=== PATIENT | female | born 1970 | race Caucasian/White ===

== ENCOUNTER 2016-07-18 10:59 | Observation (INO) | payer OTHER ==
--- NOTE | ~2016-07-18 | CT71 ---
[facility] A Service of [facility] RADIOLOGY TEXT RESULTS PATIENT: JENNYFER CHURCHILL LOCATION: [facility] [id number] : [birth year] UNIT #: [id number] AGE: [address]: Basia Cooley MD SEX: F ORDER DR: [id number] [place] [id number] [facility]. [place], [place] [address] [id number] MR#: [id number] Acc #: [id number] NAME: JENNYFER CHURCHILL : 1970 SEX: F STUDY DATE/TIME: 07/18/2016 12:07 UNIT: [facility] ROOM: STUDY DESCRIPTION: CT Head Wo Contrast Attending Physician: Edward Babb M.D. Ordering Physician: Edward Babb M.D. Primary Care Physician: Wei Oviedo M.D. MEDICAL IMAGING REPORT This report is preliminary unless electronic signature is present EXAM CT head INDICATION Right arm numbness. Slurred speech. TECHNIQUE CT of the head without contrast. This CT exam was performed with one or more of the following radiation dose reduction techniques: automatic exposure control, adjustment of mA and/or kV according to patient size, and iterative reconstruction. COMPARISON None available. FINDINGS Axial noncontrast images were obtained from the skull base to the vertex. Ventricular size and configuration are normal. There is no evidence of acute infarct or hemorrhage. There are no extra-axial fluid collections. No mass lesion or mass effect is seen. There are no skull fractures. IMPRESSION Normal noncontrast head CT. Dictated by... Phil Smith M.D. THIS IS AN ELECTRONICALLY VERIFIED REPORT Phil Smith M.D. at 07/18/2016 2:46 PM RPC/el TD: 07/18/2016 14:32 [facility] A Service of [facility] RADIOLOGY TEXT RESULTS PATIENT: JENNYFER CHURCHILL LOCATION: [facility] [id number] : [birth year] UNIT #: [id number] AGE: [address]: Basia Cooley MD SEX: F ORDER DR: JOB #: [id number] MEDICAL IMAGING REPORT Page 1 of 1 COPY
--- NOTE | ~2016-07-18 | CO ---
Unit #: [id number] #: [id number] Patient: JENNYFER CHURCHILL [id number] [facility] [address] [facility]. [place], [place] [address] [id number] I MR#: [id number] NAME: JENNYFER CHURCHILL ROOM: 327 Age: 46 Sex: F Admission Date: 07/18/2016 : 1970 Attending Physician: Seth Garner M.D. Primary Care Physician: Wei Oviedo M.D. Requesting Physician: Basia Cooley M.D. Consultation Date: 07/18/2016 CONSULTATION REPORT REASON FOR CONSULTATION Right upper extremity weakness and numbness. PATIENT IDENTIFICATION This is a 46-year-old right-handed female evaluated originally in the emergency room, T2 and now in 327 at [facility]. SOURCE OF INFORMATION Obtained from the patient as well as the medical record. HISTORY OF PRESENT ILLNESS This is a 46-year-old right-handed female with a past medical history of coronary artery disease with a history of stent approximately 2 years ago, hypertension, hyperlipidemia, diabetes mellitus type 2 and tobacco use. She presented to [facility] with complaints of slurred speech with struggling to get her words out and also right arm and hand numbness. She said that she woke up this morning after going to bed in her usual state of sahil and noted she was having some weakness and numbness in her upper extremity. She is right handed. She decided to get ready and go to work and she noticed at work she was struggling with her words at times and her coworkers noted that her speech was slurred. Her symptoms essentially improved and mostly resolved with the exception of some continued right hand numbness. She states that she felt as though her speech had resolved and initially seems at first glance to not have any major difficulties with speech, but after a long thorough conversation she does have an occasional difficulty in finding the right word to say. She was admitted for further workup and evaluation. CT was negative for any acute findings. Neurology was asked to evaluate for the above symptoms and concern for stroke versus TIA. She was given a gram of Rocephin for abnormal urinalysis and concern for urinary tract infection. The patient is asymptomatic at this time. She was loaded with Plavix 600 mg in the emergency room and was also given aspirin. MRI of the brain was done with those results just now available and I did discuss those findings with her. She does have an area of abnormal restricted diffusion, consistent with recent likely thromboembolic insult to the posterior left MCA territory with multiple small areas of restricted diffusion involving the posterior left frontal lobe, anterior left parietal lobe, cortex, underlying subcortical white matter with largest about 1.4 cm in dimension. At this time there is no appreciable mass effect and no evidence for hemorrhagic transformation. Findings most consistent with recent thromboembolic insult with some peripheral distribution of thromboemboli. Please see report. She had a CT angiogram done as well in the emergency room. CT angiogram of the head and neck Unit #: [id number] #: [id number] Patient: JENNYFER CHURCHILL shows what appears to be 40% proximal ICA stenosis by NASCET criteria bilaterally. No hemodynamically or flow-limiting stenosis intracranially. No evidence of carotid or vertebral dissection. Full dictated report is pending. Imaging has been reviewed. She denies any exacerbating or alleviating factors or any other associated symptoms, such as double vision, blurred vision or loss of vision, headache, neck pain, fall, recent illness or injury. She does complain that she had a mild headache this morning, which has resolved. She states that she has occasional headaches, but denied that it is the worst pain of her life and reports that her headache has resolved. She denies any loss of consciousness or loss of awareness, shortness of breath, chest pain, bruising or bleeding abnormalities or symptoms otherwise. PAST MEDICAL HISTORY 1. Tobacco abuse. 2. Coronary artery disease, status post stent placement two years ago. She is followed by Dr. Nava. 3. Hypertension. 4. Hyperlipidemia. 5. Diabetes mellitus type 2. 6. section. 7. Hernia repair. 8. Cardiac stent. 9. Cardiac catheterization. SOCIAL HISTORY The patient lives with her children. She smokes one pack per day of tobacco. She denies alcohol use or illicit drug use. 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 FAMILY HISTORY Positive for hypertension and coronary artery disease in her father, though she is unsure at what age. She states that she was not close with her father. She says her mother had a history of diabetes, hypertension and Parkinson disease. ALLERGIES No known drug allergies. HOME MEDICATIONS 1. Lisinopril 20 mg p.o. daily. 2. Carvedilol 25 mg p.o. b.i.d. 3. Glipizide 10 mg p.o. daily. 4. Metformin 500 mg p.o. b.i.d. 5. Lasix 20 mg p.o. daily. 6. Lantus insulin 24 units subcutaneous at bedtime. 7. Fenofibrate 160 mg p.o. daily. 8. Potassium chloride 20 mEq p.o. daily. 9. Not listed on the medication reconciliation, she does take aspirin 81 mg p.o. daily and she did confirm this. REVIEW OF SYSTEMS Fourteen point review of systems done and pertinent positives are as listed above, otherwise negative. PHYSICAL EXAMINATION VITALS: Temperature 97.9, she has been afebrile. Pulse 84, respiratory rate 16, blood pressure 127/76. Blood pressure in the emergency room on Unit #: [id number] #: [id number] Patient: JENNYFER CHURCHILL arrival was 123/76. Oxygen saturation 96%. Height 5'3" and weight 190 pounds. BMI is 33. NEUROLOGIC EXAMINATION The patient is awake, alert and oriented to person, place and time, as well as events. She has no right/left confusion. No finger agnosia. Initially she did not appear to have any significant difficulty as far as aphasia, but upon longer conversation with the patient she has some mild occasional word-finding difficulty, but it is minimal. No dysarthria. No apraxia. CRANIAL NERVES: She demonstrates full field of vision. Eyes are conjugate without ptosis or nystagmus. Extraocular movements are intact. Sensation of the face and scalp intact. Strength of muscles of facial expression intact. Hearing is intact to finger rub and conversation. Tongue is midline. Uvula is midline. Palatal elevation is normal. Head turning and shoulder shrug are unremarkable. Neck is supple. MOTOR: She demonstrates normal bulk and tone. Strength is equal, 5/5 in all extremities. There is no focal weakness appreciated. GAIT: Normal. Romberg deferred. REFLEXES: One out of four toes are equivocal. COORDINATION: No pass pointing seen. DIAGNOSTIC STUDIES IMAGING: MRI of the brain, please see above. CT angiogram, please see above. CT of the head without contrast on 07/18/2016 normal. LABORATORY: CMP unremarkable other than a glucose of 136, cholesterol 144, triglycerides 216, LDL 73, HDL 28, troponin less than 0.05. CBC unremarkable other than hematocrit of 45.4. PT 1.2, INR 1.0, PTT 23.1. Urinalysis shows 2+ leukocytes, greater than 1000 glucose, positive for nitrates, 25-50 white cells, 3+ bacteria, many squamous cells. Culture pending. Initial troponin less than 0.05. Initial glucose 189. ASSESSMENT 1. Acute left middle cerebral artery territory likely thromboembolic ischemic stroke with right hand paresthesia and mild aphasia. 2. Coronary artery disease with a history of stent two years ago. Followed by Dr. Nava. 3. Hypertension. 4. Hyperlipidemia. Will initiate statin therapy with Lipitor 40 mg p.o. at nighttime. LDL is greater than 70. She denies any allergies or intolerance to statin. 5. Diabetes mellitus type 2. Check hemoglobin A1c. 6. Tobacco abuse. I discussed with the patient at length regarding the need for cessation as far as stroke and heart risk reduction. PLAN Please see orders. The patient woke up with symptoms. Thus, she was not a candidate for acute intervention with Alteplase. She received a loading dose of Plavix in the emergency room. Will continue aspirin and Plavix for medical management as well as intensive statin therapy. Will ask physical therapy, occupational therapy and speech therapy to see. She may only need outpatient therapy, but needs evaluation. Stroke education has been discussed with the patient at length and I will follow up and discuss with her again in the morning. She is being admitted to the stroke floor Unit #: [id number] #: [id number] Patient: JENNYFER CHURCHILL for further evaluation. The case was discussed with Dr. Easley and he agrees with the above. We will follow along with you. Thank you very much for allowing us to assist in the care of this patient. Dictated by... Marisa Fernanod A.P.R.N. for Wendy Mathew/bertha TD: 07/19/2016 08:28 JOB #: [id number] CONSULTATION REPORT Page 1 of 1 X Marisa Fernando APRN CONSULTATION REPORT
--- NOTE | ~2016-07-18 | HP ---
Unit #: [id number] #: [id number] Patient: JENNYFER CHURCHILL [id number] [facility] [address] [facility]. [place], [place] [address] [id number] I MR#: [id number] NAME: JENNYFER CHURCHILL ROOM: 19174 Age: 46 Sex: F Admission Date: 07/18/2016 : 1970 Attending Physician: Basia Cooley M.D. Primary Care Physician: Wei Oviedo M.D. HISTORY AND PHYSICAL CHIEF COMPLAINT Right arm numbness. HISTORY OF PRESENT ILLNESS The patient is a 46-year-old female with a past medical history of hypertension, hyperlipidemia, diabetes, and coronary artery disease, who presented to the emergency department for evaluation of the above. The patient states that she was in her usual state of health until the morning of admission around 6. She states that she noticed her right upper extremity to be numb and weak. She is right-handed. She also thought that her speech was somewhat slurred. She presented to the emergency department for further evaluation. She denies ever having a similar episode. In the emergency department, initial head CT is negative. Laboratory is notable for findings concerning for urinary tract infection. She was given a gram of Rocephin. Additionally, the emergency room physician spoke with Neurology who recommended 600 mg of Plavix which was given p.o. She is being admitted to [facility] for evaluation and further treatment. PAST MEDICAL HISTORY 1. Admission to [facility] about two years ago. She had a cardiac stent placed during that admission (no records). 2. Coronary artery disease, status post stent placement, followed by Dr. Nava. 3. Hypertension. 4. Hyperlipidemia. 5. Diabetes. PAST SURGICAL HISTORY 1. section. 2. Hernia repair. 3. Cardiac stent. 4. Cardiac catheterization. SOCIAL HISTORY The patient lives with her children. She smokes a pack of cigarettes daily. She denies alcohol or illicit drug use. 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 FAMILY HISTORY Notable for her dad having hypertension and possibly heart issues. Her Unit #: [id number] #: [id number] Patient: JENNYFER CHURCHILL mother had diabetes, hypertension, and Parkinson disease. ALLERGIES No known allergies. HOME MEDICATIONS 1. Lisinopril 20 mg daily. 2. Carvedilol 25 mg twice daily. 3. Glipizide 10 mg daily. 4. Metformin 500 mg twice daily. 5. Lasix 20 mg daily. 6. Lantus 24 units at bedtime. 7. Fenofibrate 160 mg daily. 8. Potassium 20 mEq daily. REVIEW OF SYSTEMS A complete review of systems is negative except as indicated in the History of Present Illness. The patient states that her blood sugars are typically in the 160 to 170 range. PHYSICAL EXAMINATION VITAL SIGNS: Temperature is 98.7, pulse 94, respirations 24, blood pressure 123/76, and oxygen saturation is 98% on room air. GENERAL: Patient is a very pleasant female who is awake, alert, and in no acute distress. HEENT: Head is atraumatic. Mucous membranes are moist. NECK: Supple. Trachea is midline. CARDIOVASCULAR: Regular rate and rhythm. LUNGS: Clear to auscultation bilaterally with no increased work of breathing. ABDOMEN: Soft and nontender with bowel sounds present in all four quadrants. EXTREMITIES: Patient does have edema of the feet. NEUROLOGIC: Patient is awake and alert. She follows commands. Sensation is subjectively decreased involving the right upper extremity. Electrician Technician strength is symmetric. There is no appreciable pronator drift. PSYCHIATRIC: Mood and affect are normal. Patient is cooperative. SKIN: Skin of examined areas is warm and dry. DIAGNOSTIC STUDIES LABORATORY: Complete blood count is essentially normal. Troponin is less than 0.05. Urinalysis notable for 2+ leukocyte esterase, positive nitrite, greater than 1000 glucose, 25-50 white blood cells, 3+ bacteria, and many squamous cells. INR is 1. Urine test is negative. IMAGING: CT of the head shows nothing acute. CARDIOLOGY: EKG shows normal sinus rhythm with a rate of 98 beats per minute. ASSESSMENT The patient is a 46-year-old female with: 1. Right upper extremity numbness/weakness. 2. Abnormal speech. 3. Urinary tract infection. There are no urine cultures in [facility] for review. 4. Hypertension. 5. Hyperlipidemia. Unit #: [id number] #: [id number] Patient: JENNYFER CHURCHILL 6. Diabetes. 7. Coronary artery disease, status post cardiac stent placement. 8. Tobacco abuse. PLAN 1. Admit for observation to intermediate level. 2. Healthy heart, consistent carbohydrate diet if passes bedside swallow. 3. Neuro check q.4 hours. 4. CTA of the head and neck and MRI of the brain without contrast as per stroke protocol. 5. Stroke protocol per Neurology. 6. Consult Dr. Jacome regarding possible TIA. 7. Serial cardiac enzymes. 8. Urine culture and sensitivity on urine in the lab. 9. Rocephin IV pending results of urine culture. 10. Hemoglobin A1c. 11. Low-dose sliding scale insulin with Accu-Cheks. 12. Repeat labs in the morning. 13. SCDs for DVT prophylaxis. 14. Additional workup and consultants based on above. 1. Dictated by Wendy El/james TD: 07/18/2016 16:22 JOB #: [id number] HISTORY AND PHYSICAL Page 1 of 1 X Basia Cooley MD X HISTORY AND PHYSICAL
--- NOTE | ~2016-07-18 | DS ---
Unit #: [id number] #: [id number] Patient: JENNYFER CHURCHILL [id number] [address] [address] [id number] I MR#: [id number] NAME: JENNYFER CHURCHILL ROOM: 327 Age: Sex: F Admission Date: 07/18/2016 : 1970 Discharge Date: 07/20/2016 Attending Physician: Seth Garner M.D. Primary Care Physician: Wei Oviedo M.D. DISCHARGE SUMMARY SEE ADDENDUM DISCHARGE DIAGNOSES 1. Thromboembolic insult to the posterior left MCA territory with a no residual duct at this time. 2. Gram-negative karel urinary tract infection with discharge on Omnicef and now will followup on this urine culture and sensitivity. 3. History of uncontrolled type 2 diabetes, A1c was 11.9. 4. History of dyslipidemia. 5. Hypertriglyceridemia. 6. Essential hypertension. 7. Coronary artery disease. 8. Tobacco usage. CONSULTANTS Dr. Easley of neurology. PROCEDURES None. IMAGING Head CT 07/18/2016 impression: Normal noncontrast head CT. CT angio head and neck, impression: 1. No evidence of carotid or vertebral dissection in the neck. 2. Plaque in the bulb with about 40% stenosis in each proximal ICA by NASCET criteria. No hemodynamically significant stenosis was seen intracranially. There is no flow limiting stenosis by NASCET criteria. There is no aneurysm or vessel cutoff. MRI of the brain without contrast, impression: Recent likely thromboembolic insult to the posterior left MCA territory with multiple small areas of restricted diffusion involving the posterior left frontal lobe inferior and left parietal lobe cortex and underlying cortical white matter, largest about 1.4 cm dimension. At this time there is no appreciable mass effect and there is no evidence of hemorrhagic transformation. Findings are most consistent with a recent thromboembolic insults with some peripheral distribution of the thromboemboli. LABS ON DAY OF DISCHARGE BMP - glucose 270, BUN 13, creatinine 0.7, sodium 137, potassium 4.0, chloride 104, CO2 26, calcium 8.8, total protein 6.3, albumin 3.4, total bilirubin 0.2, AST of 15, ALT 12. Hemoglobin A1c is 11.9. Lipid panel - Unit #: [id number] #: [id number] Patient: JENNYFER CHURCHILL total cholesterol 144, triglycerides 316, LDL 73, HDL 28. Please note that TSH was 0.67, CBC with WBC of 8.5, rbc's 4.38, hemoglobin 13.7, hematocrit 31.2, MCV 94.1, MCH 31.2, MCHC 33.2, RDW 15.3, platelets 261, MPV 7.8. Currently urine culture shows Gram-negative karel, sensitivity is still pending. HOSPITAL COURSE Patient is a pleasant 46-year-old female with a past medical history of type 2 diabetes uncontrolled, essential hypertension, dyslipidemia, coronary artery disease, and ongoing tobacco usage who presents to the emergency department due to symptoms of right arm numbness. Patient noted symptoms around 6:00 on the day of admission. She had also noticed some symptoms of right upper extremity numbness and weakness. She also thought that her speech was somewhat slurred. She was seen in the emergency department for evaluation. She denied similar symptoms in the past in emergency department. CT of the head was negative. Laboratory was significant for a UTI. She was given 1 g of Rocephin. Urology was consulted and have recommended 600 mg of Plavix, which was given p.o. She was admitted for further evaluation. Upon further exam, an MRI is positive for a thromboembolic insult to the left MCA territory. Under Dr. Easley's recommendation, who felt that the source was thromboembolic, therefore, a DODIE was not felt to be needed at this time. Patient had undergone a 2D echo to assess for a bulb study and Dr. Easley will make further recommendation at this time with regards to that. Please note that the 2D echo has been done, the results are not available yet, so please refer to the full dictated 2D echo report for further details. At this time, if patient has no residual defect, she is stable to be discharged home. DISCHARGE CONDITION Stable. DISCHARGE FOLLOWUP 1. Followup with outpatient neurology as stated per neurology. 2. Followup with PCP in one to two weeks. ACTIVITIES None restricted, although I have stressed to patient on multiple times the need to sustain from tobacco usage. DISCHARGE DIET Resume a heart healthy diet with a consistent carb per [employer]'s recommendation. DISCHARGE MEDICATIONS 1. Metformin 500 mg orally twice daily. 2. Coreg 25 mg orally twice daily. 3. Lasix 25 mg orally daily. 4. Fenofibrate 160 mg orally daily. 5. Lipitor 40 mg orally at bedtime. 6. Lisinopril 20 mg orally daily. 7. Lantus 25 mg units subcutaneously at bedtime. 8. Aspirin and Plavix will be per neurology's recommendation. 9. Potassium chloride 40 mEq orally daily. 10. Glipizide 10 mg orally daily. 11. Omnicef 300 mg orally twice daily for the next five days. Please note that I will followup with patient's urine culture to ensure Unit #: [id number] #: [id number] Patient: JENNYFER CHURCHILL that it is sensitive to cephalosporin prescribed. Dictated by... KANCHAN Tovar/ts TD: 07/20/2016 11:19 JOB #: [id number] ADDENDUM This is an addendum to job #[id number]. Patient is discharged 07/20/2016 due to echo report not being available. The 2D echo report summary shows minimal left ventricular structure and systolic function, minimal diastolic function, minimal function of all valves. With regard to TIA or CVA, no cardiac source of embolus or patent foramen ovale noted. Good visualization of left ventricle and left atrium. Consider DODIE if clinically applicable. This result will be reviewed by Marisa Fernando with neurology. Patient will be discharged home. Please note after rounding on the patient it is decided the patient will be continued on aspirin 81 mg orally daily for the next month and then Plavix 75 mg orally long-term. She will follow with Dr. Jesse Lee in four to six weeks. Dictated by... Roderick Sánchez PA-C for Seth Garner M.D. TP/ts TD: 07/20/2016 10:25 JOB #: [id number] DISCHARGE SUMMARY Page 1 of 1 X X DISCHARGE SUMMARY
--- NOTE | ~2016-07-18 | CT17 ---
[facility] A Service of [facility] RADIOLOGY TEXT RESULTS PATIENT: JENNYFER CHURCHILL LOCATION: A 327-01 : [birth year] UNIT #: [id number] AGE: [address]: Seth Garner MD SEX: F ORDER DR: [id number] [facility] [address] [place], [place] [address] [id number] I MR#: [id number] #: [id number] NAME: JENNYFER CHURCHILL : 1970 SEX: F STUDY DATE/TIME: 07/18/2016 15:41 UNIT: [address] ROOM: [facility] STUDY DESCRIPTION: CT Angio Head Attending Physician: Basia Cooley M.D. Ordering Physician: Basia Cooley M.D. Primary Care Physician: Wei Oviedo M.D. MEDICAL IMAGING REPORT This report is preliminary unless electronic signature is present EXAM Head and neck CT angiogram, 07/18/16 INDICATIONS Right arm numbness and slurred speech that started today. History of coronary artery disease. TECHNIQUE Axial images were obtained through the head and neck following IV contrast administration. 3-D reformats were obtained. No comparison CTA. This CT exam was performed with one or more of the following radiation dose reduction techniques: automatic exposure control, adjustment of mA and/or kV according to patient size, and iterative reconstruction. FINDINGS Great vessel origins are widely patent from the arch. A bovine arch is noted. There is no evidence of carotid or vertebral dissection in the neck. Vertebral arteries are codominant. There is plaque at both bifurcations, more so on the left relative to the right. This results in about a 40% stenosis by NASCET criteria in the left ICA. Nearly 40% stenosis is suspected in the proximal ICA on the right side of the neck as well. Intracranially, no flow-limiting stenosis is seen by NASCET criteria. No vessel cutoff identified. No aneurysm is seen. The right vertebral artery essentially terminates in a PICA with a small continuation to the base of the basilar. There is a origin right AGRONOMY PROFESSOR. The major dural venous sinuses are patent. The visualized lungs are clear. Soft tissues of the neck appear within normal limits. IMPRESSION [facility]. [facility] A Service of [facility] / [facility] RADIOLOGY TEXT RESULTS PATIENT: JENNYFER CHURCHILL LOCATION: C3A 327-01 : [birth year] UNIT #: [id number] AGE: [address]: Seth Garner MD SEX: F ORDER DR: 1. No evidence of carotid or vertebral dissection in the neck. 2. Plaque in the bulbs with about 40% stenosis in the each proximal ICA by NASCET criteria. No hemodynamically significant stenosis is seen. 3. Intracranially, there is no flow-limiting stenosis by NASCET criteria. There is no aneurysm or vessel cutoff. Dictated by... Chrisotpher Castellanos Jr., M.D. THIS IS AN ELECTRONICALLY VERIFIED REPORT Christopher Castellanos Jr., M.D. at 07/19/2016 8:27 AM SOHAM/ministerio TD: 07/18/2016 20:08 JOB #: [id number] MEDICAL IMAGING REPORT Page 1 of 1 COPY
--- NOTE | ~2016-07-18 | A ---
[facility] Nutrition Therapy DATE: 07/19/16 Patient: JENNYFER CHURCHILL Physician: CHAUNCEY Address: [address] [place], [place] [address]Sh[place] Room/Bed: [address] [place] [address], Zip: [place] [phone] Admit Date: 07/18/16 Date of : [birth year] Height: 5 3 Weight: 191 87 NUTRITIONAL ASSESSMENT: REASON: Stroke protocol (NOTE: RD did not receive consult) PMH: CAD s/p stenting, HTN, HLD, DM, smoker, hernia repair Diet: Consistent carbohydrate Assessment: Chart reviewed, events noted. OT requested that RD see the pt for diet education. After reviewing the chart, it appears RD was not counsulted for stroke protocol. RD spoke with the pt at bedside. Pt reports no prior knowledge of carbohydrate counting, and that her diet is "terrible". Pt welcomed the diet education, stating that she wants to make changes, and is scheduled to see an outpatient RD at her PCP's office. RD provided extensive consistent carbohydrate counting education, and provided the pt with printed materials. Pt was grateful for the information and voiced understanding of strategies discussed. RD encouraged the pt to see the outpatient RD for follow up and accountability, and the pt agreed. Recommendations: 1. Pt to follow a heart healthy/ consistent carbohydrate diet as instructed by RD. 2. Pt to follow up with outpatient RD. She reportedly has an appointment scheduled. Pt is not at nutritional risk at this time. Please consult RD for any further nutritional needs. Respectfully, JUANA STEPHENS RD, LD Food and Nutritional Services [facility] cc: client file
--- NOTE | ~2016-07-18 | EKG ---
PATIENT: JENNYFER CHURCHILL UNIT #: [id number] Ventricular Rate: 98 BPM Atrial Rate: 98 BPM P-R Interval: 128 ms QRS Duration: 74 ms Q-T Interval: 348 ms QTC Calculation(Bezet): 444 ms P [employer] [place]: 35 degrees Calculated R [employer]: 30 degrees Calculated T [employer]: 29 degrees Diagnosis Line: Normal sinus rhythm Diagnosis Line: Normal ECG Diagnosis Line: When compared with ECG of 21-MAY-2012 13:07, Diagnosis Line: No significant change was found Diagnosis Line: Confirmed by TOREY MAYFIELD MD ([id number]) on 07/19/2016 Diagnosis Line: 10:01:27 AM INTERPRETING MD: TRAN HALL
--- NOTE | ~2016-07-18 | MR18 ---
[facility] A Service of [facility] RADIOLOGY TEXT RESULTS PATIENT: JENNYFER CHURCHILL LOCATION: C3A 327-01 : [birth year] UNIT #: [id number] AGE: [address]: Basia Cooley MD SEX: F ORDER DR: [id number] [facility] [address] [place], [place] [address] [id number] I MR#: [id number] Acc #: [id number] NAME: JENNYFER CHURCHILL : 1970 SEX: F STUDY DATE/TIME: 07/18/2016 16:41 UNIT: CEDOF ROOM: [id number] STUDY DESCRIPTION: MR Brain Wo Contrast Attending Physician: Basia Cooley M.D. Ordering Physician: Basia Cooley M.D. Primary Care Physician: Wei Oviedo M.D. MRI CENTER REPORT This report is preliminary unless electronic signature is present. EXAM MRI brain without 07/18/2016 HISTORY Weakness, right upper extremity numbness and weakness. History of hypertension. Patient woke up with the symptoms this morning, also had slurred speech, but this has since resolved per patient, right arm is still numb at the time of the MRI. COMMENTS MRI of the brain was performed without contrast using routine 1.5T imaging technique. COMPARISON STUDIES Head CT comparison from earlier today. CT angiogram from earlier today. FINDINGS There are several small areas of abnormally restricted diffusion seen within the left MCA territory. They are peripherally distributed predominantly in cortex and subcortical white matter and I suspect this is the result of recent thromboembolic insult left MCA territory. Involvement includes posterior left frontal lobe in the motor cortex region and more anterior left parietal lobe including the sensory cortex and would account for the patient's right arm symptoms. Largest focal area of restricted diffusion is about 1.4 cm largest dimension in the left anterior parietal lobe. There is no evidence for hemorrhagic transformation. No significant mass effect at this time. There is no extraaxial fluid collection. The major intracranial flow voids are maintained. Minimal fluid or inflammatory change in the mastoid tips bilaterally. There is a tiny chronic lacunar insult in the left inferior cerebellar hemisphere. Minimal preexisting white matter disease. At this time the major intracranial flow voids are maintained. This patient should be further evaluated for possible thromboembolus source. No STS. [facility] A Service of [facility] RADIOLOGY TEXT RESULTS PATIENT: JENNYFER CHURCHILL LOCATION: C3A 327-01 : [birth year] UNIT #: [id number] AGE: [address]: Basia Cooley MD SEX: F ORDER DR: Chiari-I malformation. I have spoken to the patient's floor nurse during this dictation and she intends to contact Marisa with neurology with the information. Additionally I have spoken to Dr. Jacome but [place] is [place] and therefore the findings were discussed with patient's nurse. IMPRESSION Findings are consistent with a recent likely thromboembolic insult to the posterior left MCA territory with multiple small areas of restricted diffusion involving the posterior left frontal lobe anterior left parietal lobe cortex and underlying subcortical white matter. Largest about 1.4 cm dimension. At this time there is no appreciable mass effect and there is no evidence for hemorrhagic transformation. Findings are most consistent with a recent thromboembolic insult with some peripheral distribution of the thromboemboli. Please correlate further for possible thromboembolus source clinically. STAT * RESULT Dictated by... Alexandria Rutledge M.D. THIS IS AN ELECTRONICALLY VERIFIED REPORT Alexandria Rutledge M.D. at 07/19/2016 7:33 AM Clifford TD: 07/18/2016 17:41 JOB #: [id number] MRI CENTER REPORT Page 1 of 1 COPY
--- NOTE | ~2016-07-18 | CT23 ---
[facility] A Service of [facility] RADIOLOGY TEXT RESULTS PATIENT: JENNYFER CHURCHILL LOCATION: [facility] 327-01 : [birth year] UNIT #: [id number] AGE: [address]: Seth Garnre MD SEX: F ORDER DR: [id number] [facility] [address] [place], [place] [address] [id number] I MR#: [id number] Acc #: [id number] NAME: JENNYFER CHURCHILL : 1970 SEX: F STUDY DATE/TIME: 07/18/2016 15:41 UNIT: [address] ROOM: [facility] STUDY DESCRIPTION: CT Angio Neck Attending Physician: Basia Cooley M.D. Ordering Physician: Basia Cooley M.D. Primary Care Physician: Wei Oviedo M.D. MEDICAL IMAGING REPORT This report is preliminary unless electronic signature is present EXAM CT angiogram neck FINDINGS Result text under order number [id number]. Please see this order for result text. Dictated by... Christopher Castellanos Jr., M.D. THIS IS AN ELECTRONICALLY VERIFIED REPORT Christopher Csatellanos Jr., M.D. at 07/19/2016 8:27 AM SOHAM/ministerio TD: 07/18/2016 20:15 JOB #: [id number] MEDICAL IMAGING REPORT Page 1 of 1 COPY
[2016-07-18] MEDS ORDERED: LISINOPRIL20 MG PO (11:13)
[2016-07-18] MEDS ORDERED: GLIPIZIDE10 MG PO (11:14)
[2016-07-18] MEDS ORDERED: LASIX20 MG PO (11:14)
[2016-07-18] MEDS ORDERED: METFORMIN HCL500 M1 PO (11:14)
[2016-07-18] MEDS ORDERED: CARVEDILOL25 MG PO (11:14)
[2016-07-18] MEDS ORDERED: LANTUS100 U/ML SUBQ (11:15)
[2016-07-18 11:42] LABS: URINE SOURCE CLEAN CATCH
[2016-07-18 11:49] LABS: BASOPHIL% 0.4 % (0-2.5); EOSINOPHIL# 0.1 X10e3 (0-0.7); EOSINOPHIL% 1.1 % (0.0-7.0); HEMATOCRIT 45.4 % (35.0-45.0); HEMOGLOBIN 15.1 gm/dL (12.0-16.0); LYMPHOCYTE# 2.7 X10e3 (1.0-3.5); LYMPHOCYTE% 28.4 % (17.0-45.0); MEAN CELL VOLUME 93.6 FL (83-96); MEAN CORPUSCULAR HEMOGLOBIN 31.1 PG (28-34); MEAN CORPUSCULAR HGB CONC 33.3 g/dL (30-36); MEAN PLATELET VOLUME 8.3 FL (6.5-11.5); MONOCYTE# 0.6 X10e3 (0-1.0); MONOCYTE% 5.8 % (3.0-12.0); NEUTROPHIL# 6.1 X10e3 (1.5-7.1); NEUTROPHIL% 64.3 % (40-75); PLATELET COUNT 314 X10e3 (140-420); RED BLOOD COUNT 4.85 X10e (3.90-5.30); RED CELL DISTRIBUTION WIDTH 15.2 % (11.0-15.5); WHITE BLOOD COUNT 9.6 X10e3 (4.0-10.5)
[2016-07-18 11:49] LABS: URINE APPEARANCE TURBID; URINE BILIRUBIN NEG (NEG); URINE BLOOD TRACE (NEG); URINE COLOR YELLOW; URINE GLUCOSE >1000 MG/DL (NEG); URINE KETONE NEG (NEG); URINE LEUKOCYTE ESTERASE 2+ (NEG); URINE NITRATE POS (NEG); URINE PROTEIN NEG (NEG); URINE SPECIFIC GRAVITY 1.018 (1.003-1.035); URINE UROBILINOGEN 0.2 MG/DL (NEG)
[2016-07-18 11:52] LABS: POC - CKMB <1.0 ng/mL (0.0-7.9); POC - TROPONIN <0.05 ng/mL (<=0.05)
[2016-07-18 11:52] LABS: CULTURE INDICATED? YES; URINE BACTERIA AUWI 3+ (NEGATIVE); URINE SQUAMOUS EPITHELIAL CELL MANY /[HPF]
[2016-07-18 12:05] LABS: PARTIAL THROMBOPLASTIN TIME 23.1 SECONDS (23.5-31.3); PROTHROMBIN TIME (PATIENT) 10.2 SECONDS (9.6-11.5)
[2016-07-18 12:07] LABS: URINE MUCUS PRESENT; UWBCS1 AUWI 25-50 (0-5)
[2016-07-18 12:12] LABS: DIFF IND NO
[2016-07-18 12:24] LABS: ALBUMIN SERUM 3.9 g/dL (3.5-5.0); BILIRUBIN, DIRECT 0.1 mg/dL (0.0-0.2); BILIRUBIN,INDIRECT 0.2 mg/dL (0.0-0.9); BILIRUBIN,TOTAL 0.3 mg/dL (0.2-2.0); BUN/CREATININE RATIO 14.44; CALCIUM SERUM 9.3 mg/dL (8.4-10.2); CREATININE SERUM 0.9 mg/dL (0.6-1.4); GLOM FILT RATE Estimated 76.7 mL/min (>60); PROTEIN TOTAL SERUM 6.9 g/dL (6.0-8.3)
[2016-07-18 13:25] LABS: POC - CKMB <1.0 ng/mL (0.0-7.9); POC - TROPONIN <0.05 ng/mL (<=0.05)
[2016-07-18] MEDS ORDERED: KLOR-CON PO ×2 (13:26→13:29)
[2016-07-18] MEDS ORDERED: FENOFIBRATE160 MG PO (13:26)
[2016-07-18 18:14] LABS: ALBUMIN SERUM 3.5 g/dL (3.5-5.0); BILIRUBIN,TOTAL 0.4 mg/dL (0.2-2.0); BUN/CREATININE RATIO 18.57; CALCIUM SERUM 8.9 mg/dL (8.4-10.2); CREATININE SERUM 0.7 mg/dL (0.6-1.4); GLOM FILT RATE Estimated 103.9 mL/min (>60); POTASSIUM 3.6 mmol/L (3.5-5.1); PROTEIN TOTAL SERUM 6.2 g/dL (6.0-8.3)
[2016-07-18 20:01] LABS: CK TOTAL 34 IU/L (26-140)
[2016-07-19 01:18] LABS: HEMATOCRIT 41.2 % (35.0-45.0); HEMOGLOBIN 13.7 gm/dL (12.0-16.0); MEAN CELL VOLUME 94.1 FL (83-96); MEAN CORPUSCULAR HEMOGLOBIN 31.2 PG (28-34); MEAN CORPUSCULAR HGB CONC 33.2 g/dL (30-36); MEAN PLATELET VOLUME 7.8 FL (6.5-11.5); RED BLOOD COUNT 4.38 X10e (3.90-5.30); RED CELL DISTRIBUTION WIDTH 15.3 % (11.0-15.5); WHITE BLOOD COUNT 8.5 X10e3 (4.0-10.5)
[2016-07-19 01:34] LABS: PROTHROMBIN TIME (PATIENT) 10.5 SECONDS (9.6-11.5)
[2016-07-19 01:39] LABS: CK TOTAL 34 IU/L (26-140)
[2016-07-19 01:41] LABS: ALBUMIN SERUM 3.4 g/dL (3.5-5.0); BILIRUBIN,TOTAL 0.2 mg/dL (0.2-2.0); BUN/CREATININE RATIO 18.57; CALCIUM SERUM 8.8 mg/dL (8.4-10.2); CREATININE SERUM 0.7 mg/dL (0.6-1.4); GLOM FILT RATE Estimated 103.9 mL/min (>60); PROTEIN TOTAL SERUM 6.3 g/dL (6.0-8.3)
[2016-07-19] MEDS ORDERED: LIPITOR40 MG PO (16:02)
[2016-07-19] MEDS ORDERED: OMNICEF300 MG PO (16:03)
[2016-07-20] MEDS ORDERED: ASPIRIN81 M2 PO (06:41)
[2016-07-20] MEDS ORDERED: CLOPIDOGREL75 MG PO (06:43)
== END 2016-07-20 13:08 | disposition home or self-care (01) | DRG 68 ==
LOC: CED 10:59 → CEDOF 14:05 → CED 14:19 → CEDOF 14:19 → C3A PCU 14:19 → CEDOF 18:26 → C3A PCU 07-19 08:15
PROVIDERS: Emergency Medicine; Psychiatry & Neurology Neurology
DX: I66.02 Occlusion and stenosis of left middle cerebral artery (principal); N39.0 Urinary tract infection, site not specified; B96.89 Other specified bacterial agents as the cause of diseases classified elsewhere; E78.5 Hyperlipidemia, unspecified; E11.9 Type 2 diabetes mellitus without complications; I25.10 Atherosclerotic heart disease of native coronary artery without angina pectoris; R47.01 Aphasia; Z95.5 Presence of coronary angioplasty implant and graft; Z79.4 Long term (current) use of insulin; Z79.84 Long term (current) use of oral hypoglycemic drugs; F17.210 Nicotine dependence, cigarettes, uncomplicated; Z83.3 Family history of diabetes mellitus; Z82.49 Family history of ischemic heart disease and other diseases of the circulatory system; Z82.0 Family history of epilepsy and other diseases of the nervous system; Z79.82 Long term (current) use of aspirin; Z79.02 Long term (current) use of antithrombotics/antiplatelets
CPT/HCPCS: 36415; 70450; 70496; 70498; 70551; 80048; 80053; 80061; 80076; 81003; 82550; 82553; 82947; 83036; 84443; 84484; 84703; 85025; 85027; 85610; 85730; 86140; 87086; 87088; 87186; 92523-GN; 92610; 93005; 93306; 96375; 97165; 99285; G0378; J0696; J1815; Q9967